=== PATIENT | female | born 1985 | race Caucasian/White ===

== ENCOUNTER 2020-09-22 21:54 | Emergency (ER) | payer OTHER ==
[~2020-09-22] VITALS: Ht 167.6 cm; Wt 84.0 kg
[2020-09-22 21:55] VITALS: BP 170/102
== END 2020-09-22 22:23 | disposition left against medical advice (07) ==
LOC: ER 21:54
DX: Z00.00 Encounter for general adult medical examination without abnormal findings (principal); J45.909 Unspecified asthma, uncomplicated; F41.9 Anxiety disorder, unspecified
CPT/HCPCS: 99283